=== PATIENT | male | born 1930 | race Caucasian/White ===

== ENCOUNTER 2019-07-27 12:36 | Emergency (ER) | payer OTHER ==
[~2019-07-27] VITALS: Ht 182.9 cm; Wt 90.7 kg
--- NOTE | 2019-07-27 14:05 | RAD ---
Examination: CT head and cervical spine without contrast HISTORY: History of fall COMPARISON: None available CT HEAD Exposure: One or more of the following individualized dose reduction techniques were utilized for this examination: 1. Automated exposure control 2. Adjustment of the mA and/or kV according to patient size 3. Use of iterative reconstruction technique TECHNIQUE: 5 mm contiguous axial images were obtained from the skull base to the vertex in both bone and soft tissue algorithm. FINDINGS: Moderate size hematoma identified in the left forehead. Mild bilateral periventricular white matter hypodensities likely chronic small vessel ischemic disease. No evidence of acute intracranial hemorrhage. No extra-axial fluid collections. No mass effect or midline shift. Ventricular size is appropriate. Basal cisterns are patent. No fractures identified.Archibald-white differentiation is preserved.Globes and orbits are within normal limits. Paranasal sinuses and mastoid air cells are clear. IMPRESSION: 1. No acute intracranial findings. 2. Moderate size hematoma identified in the left forehead region. CT CERVICAL SPINE Technique: 2.5 mm contiguous axial images were obtained from the skull base through the cervicothoracic junction in both bone and soft tissue algorithm. Additional sagittal and coronal reconstructions were also performed. FINDINGS: Vertebral body height and alignment are maintained. Cervical lordosis is preserved. The lateral masses of C1 are aligned upon C2. No fractures identified. The bony canal is patent throughout. Moderate to severe intervertebral disc height loss identified in the cervical spine particularly at C5-C6, C6-C7 vertebral levels with moderate anterior osteophyte formation. The bilateral facets are well aligned. The paraspinous soft tissues are unremarkable. Visualized intracranial contents are unremarkable. Lung apices are clear. IMPRESSION: 1. No acute fracture cervical spine. Correlate clinically. 2. Moderate to severe degenerative changes cervical spine. Electronically signed by: Gordon Reeder MD (07/27/2019 2:02 PM) [facility]
--- NOTE | 2019-07-27 14:43 | PHYS DOC ---
Past Medical History Past Medical History: Diabetes-Type II, Hypertension, Other Additional Past Medical Histor: BPH Past Surgical History: Other Additional Past Surgical Histo: UNKNOWN Alcohol Use: None Drug Use: None Adult General Chief Complaint Chief Complaint: MECHANICAL FALL HPI HPI Patient is a 88 year old male patient with history of hypertension and diabetes mellitus resident of [facility] who presents via EMS with complaining of a fall. Patient states he bending over to carp his remote quadrant and lost his balance and had a fall and injured his left side of his forehead without loss of consciousness or other injuries. Patient complaining of mild pain in his forehead without other pain. Patient is up-to-date with tetanus immunization. Review of Systems Review of Systems Constitutional: Denies fever or chills [] Eyes: Denies change in visual acuity, redness, or eye pain [] HENT: Denies nasal congestion or sore throat [] Respiratory: Denies cough or shortness of breath [] Cardiovascular: No additional information not addressed in HPI [] GI: Denies abdominal pain, nausea, vomiting, bloody stools or diarrhea [] : Denies dysuria or hematuria [] Musculoskeletal: Denies back pain or joint pain [] Integument: Denies rash or skin lesions [] Neurologic: Denies focal weakness or sensory changes, reports headache [] Endocrine: Denies polyuria or polydipsia [] All other systems were reviewed and found to be within normal limits, except as documented in this note. Current Medications Current Medications Current Medications Medications (Trade) Dose Ordered Sig/Jyoti Start Time Stop Time Status Last Admin Dose Admin Diphtheria/ Tetanus/Acell Pertussis (Boostrix) 0.5 ml ONCE ONCE 07/27/19 14:45 07/27/19 14:46 DC Allergies Allergies Allergies Coded Allergies Type Severity Reaction Last Updated Verified No Known Drug Allergies 07/27/19 No Physical Exam Physical Exam Constitutional: Well developed, well nourished, mild distress, non-toxic appearance. [] HENT: Normocephalic, left forehead large ecchymosis and constipation central abrasion Eyes: PERRLA, EOMI, conjunctiva normal, no discharge. [] Neck: C-collar in place Cardiovascular:Heart rate regular rhythm, no murmur [] Lungs & Thorax: Bilateral breath sounds clear to auscultation [] Abdomen: Bowel sounds normal, soft, no tenderness, no masses, no pulsatile masses. [] Skin: Warm, dry, no erythema, no rash. [] Back: No tenderness, no CVA tenderness. [] Extremities: No tenderness, no cyanosis, no clubbing, ROM intact, no edema. [] Neurologic: Alert and oriented X 3, no focal deficits noted. [] Psychologic: Affect normal, judgement normal, mood normal. [] Current Patient Data Vital Signs Vital Signs Date Time Temp Pulse Resp B/P (MAP) Pulse Ox O2 Delivery O2 Flow Rate FiO2 07/27/19 12:40 98.1 68 16 154/74 (100) 98 Room Air 98.1 EKG EKG [] Radiology/Procedures Radiology/Procedures [][facility] [address] [place] [address] IMAGING REPORT Signed PATIENT: EILEEN SIMS ACCOUNT: [id number] : 1930 LOCATION: ER AGE: 88 SEX: M EXAM STATUS: REG ER ORD. PHYSICIAN: WILLIAM MUSE MD REASON: fall PROCEDURE: CT HEAD AND CERVICAL SPINE WO Examination: CT head and cervical spine without contrast HISTORY: History of fall COMPARISON: None available CT HEAD Exposure: One or more of the following individualized dose reduction techniques were utilized for this examination: 1. Automated exposure control 2. Adjustment of the mA and/or kV according to patient size 3. Use of iterative reconstruction technique TECHNIQUE: 5 mm contiguous axial images were obtained from the skull base to the vertex in both bone and soft tissue algorithm. FINDINGS: Moderate size hematoma identified in the left forehead. Mild bilateral periventricular white matter hypodensities likely chronic small vessel ischemic disease. No evidence of acute intracranial hemorrhage. No extra-axial fluid collections. No mass effect or midline shift. Ventricular size is appropriate. Basal cisterns are patent. No fractures identified.Archibald-white differentiation is preserved.Globes and orbits are within normal limits. Paranasal sinuses and mastoid air cells are clear. IMPRESSION: 1. No acute intracranial findings. 2. Moderate size hematoma identified in the left forehead region. CT CERVICAL SPINE Technique: 2.5 mm contiguous axial images were obtained from the skull base through the cervicothoracic junction in both bone and soft tissue algorithm. Additional sagittal and coronal reconstructions were also performed. FINDINGS: Vertebral body height and alignment are maintained. Cervical lordosis is preserved. The lateral masses of C1 are aligned upon C2. No fractures identified. The bony canal is patent throughout. Moderate to severe intervertebral disc height loss identified in the cervical spine particularly at C5-C6, C6-C7 vertebral levels with moderate anterior osteophyte formation. The bilateral facets are well aligned. The paraspinous soft tissues are unremarkable. Visualized intracranial contents are unremarkable. Lung apices are clear. IMPRESSION: 1. No acute fracture cervical spine. Correlate clinically. 2. Moderate to severe degenerative changes cervical spine. Electronically signed by: Gordon Reeder MD (07/27/2019 2:02 PM) [facility] DICTATED and SIGNED BY: GORDON REEDER MD DATE: 07/27/19 140 Course & Med Decision Making Course & Med Decision Making Pertinent Imaging studies reviewed. (See chart for details) Evaluation of patient in ER showed 88-year-old male patient with mechanical fall from a standing position and forehead contusion and hematoma. CT head and cervical spine was unremarkable. Patient did not have focal neurodeficit and ambulated without problem. I've spoken with the patient and/or caregivers. I've explained the patient's condition, diagnosis and treatment plan based on information available to me at this time. I've answered the patient's and/or caregivers questions and addressed any concerns. The patient and/or caregivers have a good understanding the patient's diagnosis, condition and treatment plan as can be expected at this point. Vital signs have been stabilized. The patient's condition is stable for discharge from the emergency department. The patient will pursue further outpatient evaluation with her primary care provider or other designated consulting physician as outlined in the discharge instructions. Patient and/or caregivers are agreeable to this plan of care and follow-up instructions have been explained in detail. The patient and/or caregivers have received these instructions in written format and expressed understanding of these discharge instructions. The patient and her caregivers are aware that if any significant change in condition or worsening of symptoms should prompt him to immediately return to this of the closest emergency department. If an emergent department is not readily available I would encourage him to call 911. Diego Disclaimer Dragon Disclaimer This electronic medical record was generated, in whole or in part, using a voice recognition dictation system. Departure Departure Impression: Primary Impression: Forehead contusion Additional Impression: Fall at [facility] Disposition: 01 HOME, SELF-CARE ([facility] at 1442) Condition: IMPROVED Referrals: UNKNOWN PCP NAME (PCP) Patient Instructions: Facial or Scalp Contusion, Fall Prevention and Home Safety Additional Instructions: Continue current medication Follow-up with your primary care physician in 3-5 days Return to ER if not getting better Apply ice on the affected area Problem Qualifiers Primary Impression: Forehead contusion Encounter type: sequela Qualified Codes: S00.83XS - Contusion of other part of head, sequela Additional Impression: Fall at [facility] Encounter type: initial encounter Qualified Codes: W19.XXXA - Unspecified fall, initial encounter; Y92.129 - Unspecified place in [facility] as the place of occurrence of the external cause WILLIAM MUSE MD Jul 27, 2019 14:43
[2019-07-27 14:45] VITALS: BP 131/82
[2019-07-27] MEDS ORDERED: DIPHTH,PERTUSS(ACELL),TET TOX 0.5 ML DISP.SYRIN. VAX IM ONE (14:45)
== END 2019-07-27 15:09 | disposition home or self-care (01) ==
LOC: ER 12:36
DX: S00.83XA Contusion of other part of head, initial encounter (principal); I10 Essential (primary) hypertension; E11.9 Type 2 diabetes mellitus without complications; W18.39XA Other fall on same level, initial encounter; Y93.89 Activity, other specified; Y92.128 Other place in nursing home as the place of occurrence of the external cause; Y99.8 Other external cause status
CPT/HCPCS: 70450; 72125; 99284-25

== ENCOUNTER 2021-10-05 18:12 | Emergency (ER) | payer OTHER ==
[~2021-10-05] VITALS: Ht 188 cm; Wt 90.0 kg
[2021-10-05] MEDS ORDERED: IV NORMAL SALINE 1000ML BAG 1,000 ML IV SCH (18:45)
[2021-10-05 18:51] LABS: BASO % 0 % (0-3); EOS # 0.1 x10^3/uL (0.0-0.7); EOS % 1 % (0-3); HEMATOCRIT 50.8 % (39.0-53.0); HEMOGLOBIN 16.8 g/dL (13.0-17.5); LYMPH # 0.2 x10^3/uL (1.0-4.8); LYMPH % 2 % (24-48); MEAN CORPUSCULAR HEMOGLOBIN 31 pg (25-35); MEAN CORPUSCULAR HGB CONC 33 g/dL (31-37); MEAN CORPUSCULAR VOLUME 95 fL (79-100); MONO # 0.3 x10^3/uL (0.0-1.1); MONO % 3 % (0-9); NEUT # 11.4 x10^3/uL (1.8-7.7); NEUT % 94 % (31-73); PLATELET COUNT 172 x10^3/uL (140-400); RED BLOOD COUNT 5.38 x10^6/uL (4.30-5.70); WHITE BLOOD COUNT 12.1 x10^3/uL (4.0-11.0)
[2021-10-05 19:03] LABS: CALCIUM 8.8 mg/dL (8.5-10.1); CREATININE 1.6 mg/dL (0.7-1.3); POTASSIUM 4.5 mmol/L (3.5-5.1)
--- NOTE | 2021-10-05 19:03 | PHYS DOC ---
Past Medical History Past Medical History: Diabetes-Type II, Hypertension, Other Additional Past Medical Histor: BPH Past Surgical History: Cancer Surgery, Other Additional Past Surgical Histo: UNKNOWN Smoking Status: Never Smoker Alcohol Use: None Drug Use: None General Adult EDM: Chief Complaint: WEAKNESS/GENERALIZED HPI: HPI: 89-year-old male past medical history of dementia, hypertension and diabetes, presents to the ED BIBEMS from healthcare assisted[facility] facility with concern for weakness, confusion, nausea and vomiting. Patient here with his DPOA, Juno, who states patient requires assistance with ambulation but was unable to use his walker today. Patient with history of swallowing issues in [facility] Review of Systems: Review of Systems: ROS limited due to dementia and hearing loss Heart Score: C/O Chest Pain: N/A Risk Factors: Risk Factors: DM, Current or recent (<one month) smoker, HTN, HLP, family history of CAD, obesity. Risk Scores: Score 0 - 3: 2.5% MACE over next 6 weeks - Discharge Home Score 4 - 6: 20.3% MACE over next 6 weeks - Admit for Clinical Observation Score 7 - 10: 72.7% MACE over next 6 weeks - Early Invasive Strategies Current Medications: Current Medications Medications (Trade) Dose Ordered Sig/Jyoti Start Time Stop Time Status Last Admin Dose Admin Sodium Chloride 1,000 ml @ 1,000 mls/hr Q1H 10/05/21 18:45 10/05/21 19:44 Allergies: Allergies: Allergies Coded Allergies Type Severity Reaction Last Updated Verified No Known Drug Allergies 07/27/19 No Physical Exam: PE: Constitutional: Dried emesis over chin, non-toxic appearance. HENT: Normocephalic, atraumatic, dry mucous membrane, left ear with purulent otorrhea that is draining from middle ear, no TM erythema Eyes: EOMI, conjunctiva normal, no discharge. Neck: Normal range of motion, supple, no JVD Cardiovascular: S1/2 present, tachycardic Lungs & Thorax: Speaking in full sentences, bilateral equal chest rise, no tachypnea or increased work of breathing Abdomen: soft, no tenderness, no grimace with palpation, no rigidity or guarding Skin: Warm, dry, no erythema, no rash. [] Extremities: no cyanosis, no lower extremity edema Neurologic: Alert, answers inappropriately, no focal deficits noted. [] Psychologic: No agitation, flat affect Current Patient Data: Vital Signs: Vital Signs Date Time Temp Pulse Resp B/P (MAP) Pulse Ox O2 Delivery O2 Flow Rate FiO2 10/05/21 18:18 97.7 109 18 176/93 (120) 94 Room Air 97.7 EKG: EKG: Sinus tachycardia 1 to 5 bpm, extreme right axis deviation, QRS 136, QTc 45, right bundle branch block, T wave inversion lead III, no ST elevation or ST depressions Radiology/Procedures: Radiology/Procedures: IMAGING REPORT Signed PATIENT: EILEEN SIMS ACCOUNT: [id number] : 1930 LOCATION: ER AGE: 89 SEX: M EXAM STATUS: REG ER ORD. PHYSICIAN: KOBY CONTRERAS DO REASON: weakness PROCEDURE: CT HEAD WO CONTRAST PQRS Compliance Statement: One or more of the following individualized dose reduction techniques were utilized for this examination: 1. Automated exposure control 2. Adjustment of the mA and/or kV according to patient size 3. Use of iterative reconstruction technique CT HEAD WITHOUT CONTRAST History: Reason: weakness / Spl. Instructions: / History: Comparison: CT head without contrast July 27, 2019. Technique: Axial images are obtained of the head from the skull base through the vertex without IV contrast. Findings: No mass-effect, midline shift, extra-axial fluid collection, hemorrhage, or obvious acute infarction is identified. Basilar cisterns are patent. The ventricles and sulci are prominent, consistent with generalized cerebral atrophy. There is periventricular white matter hypoattenuation. This is a nonspecific finding but is commonly due to chronic small vessel ischemic disease. 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 Bone windows demonstrate no acute calvarial abnormality. The visualized paranasal sinuses are clear. Left mastoid air cells are completely opacified. The left middle ear cavity also may be opacified. IMPRESSION: 1. No acute intracranial abnormality. 2. Generalized cerebral atrophy and mild periventricular white matter changes probably due to chronic small vessel ischemic disease. 3. Left mastoid air cells are completely opacified. Correlate for mastoiditis. Electronically signed by: Stephen Hood MD (10/05/2021 7:54 PM) [facility] DICTATED and SIGNED BY: STEPHEN HOOD MD DATE: 10/05/[id number] 0 IMAGING REPORT Signed PATIENT: EILEEN SIMS ACCOUNT: [id number] : 1930 LOCATION: ER AGE: 89 SEX: M EXAM STATUS: REG ER ORD. PHYSICIAN: KOBY CONTRERAS DO REASON: weakness PROCEDURE: PORTABLE CHEST 1V Single view chest dated 10/05/2021 7:26 PM: COMPARISON: None Clinical Indication: Weakness. Findings: Single upright portable exam of the chest was performed. Heart size upper limits of normal. There is tortuosity and ectasia of the thoracic aorta. Possible aneurysm at the aortic knob measuring up to 6 cm. There are some prominent perihilar linear markings. No consolidation or pleural effusion. No pneumothorax. IMPRESSION: 1. Mild bibasilar interstitial changes, nonspecific. 2. Suspected aneurysm of the thoracic aorta. CT would better evaluate. Electronically signed by: Santosh Law MD (10/05/2021 7:28 PM) [facility] and SIGNED BY: SANTOSH LAW MD DATE: 10/05/[id number] 0 IMAGING REPORT Signed PATIENT: EILEEN SIMS ACCOUNT: [id number] : 1930 LOCATION: ER AGE: 89 SEX: M EXAM STATUS: REG ER ORD. PHYSICIAN: KOBY CONTRERAS DO REASON: N/V, weakness PROCEDURE: CT ABDOMEN PELVIS WO CONTRAST PQRS Compliance Statement: One or more of the following individualized dose reduction techniques were utilized for this examination: 1. Automated exposure control 2. Adjustment of the mA and/or kV according to patient size 3. Use of iterative reconstruction technique CT ABDOMEN+PELVIS WO Clinical Indication: Reason: N/V, weakness / low GFR / Comparison: None. Technique: Helical CT imaging of the abdomen and pelvis is performed without IV or oral contrast. Findings: Evaluation of solid organs and bowel is limited without oral and IV contrast, decreasing sensitivity for detection of pathology. There is respiratory motion artifact in the lung bases. There is bilateral lower lobe atelectasis and/or scarring. Cardiac size upper limits of normal. Coronary artery disease. No pericardial effusion. Liver, gallbladder, spleen, pancreas, and adrenal glands are normal. Atherosclerotic abdominal aorta, no aneurysm. There is no hydronephrosis. Stomach is mildly distended with fluid. There is no dilated small bowel. There is small bowel loop contained in a left inguinal hernia. No colon wall thickening is seen. There is evidence of prior right inguinal hernia repair. The appendix is normal. There is no abdominal adenopathy or free fluid. The urinary bladder is mildly distended, otherwise normal. The prostate is moderately enlarged. No pelvic free fluid. There is degenerative spondylosis of L5/S1. There is mild grade 1 anterolist hesis of L4 on L5. IMPRESSION: 1. No acute abdominal or pelvic abnormality. 2. There is a left inguinal hernia containing a small bowel loop. There is currently no small bowel obstruction. 3. Moderate prostatomegaly. Electronically signed by: Stephen Hood MD (10/05/2021 8:04 PM) [facility] DICTATED and SIGNED BY: STEPHEN HOOD MD DATE: 10/05/21 [id number] 0 Course & Med Decision Making: Course & Med Decision Making Pertinent Labs and Imaging studies reviewed. (See chart for details) Concern for left mastoiditis in the setting of lactic acidosis that did not improve after 3 L NS bolus. Leukocytosis of 12.1 with 1 band. No infection on chest x-ray and urinalysis. Nausea vomiting resolved emergency department patient's mental status significantly improved-requires verbal de-escalation, trying to get out of bed and leave the ED. I spoke to Juno, pts' DPOA and pt is a DNR. Patient was started on broad-spectrum antibiotics. No ENT coverage at [place]. Will transfer to [facility] for ENT consultation and further medical management. The patient has been stabilized within the capability of the emergency department. The patient will be transported for further care and management or will be moved to an observation or inpatient service. I have communicated with the staff or medical practitioner taking over this patient's care. Diego Disclaimer: Diego Disclaimer: This electronic medical record was generated, in whole or in part, using a voice recognition dictation system. Departure Departure Impression: Primary Impression: Acute mastoiditis of left side Additional Impressions: Lactic acidosis Nausea & vomiting Disposition: SHORT [facility] (to [facility], accepted by Dr. Bird ) Condition: GUARDED Referrals: UNKNOWN PCP NAME (PCP) KOBY CONTRERAS DO Oct 05, 2021 19:03
[2021-10-05 19:09] LABS: ALBUMIN 3.6 g/dL (3.4-5.0); ALBUMIN/GLOBULIN RATIO 0.9 (1.0-1.7); MAGNESIUM 1.6 mg/dL (1.8-2.4); TOTAL BILIRUBIN 0.6 mg/dL (0.2-1.0); TOTAL PROTEIN 7.4 g/dL (6.4-8.2)
[2021-10-05] MEDS ORDERED: ONDANSETRON PF 4 MG/2 ML VIAL. IVP ONE (19:15)
[2021-10-05] MEDS ORDERED: FAMOTIDINE 20 MG/2 ML VIAL IVP ONE (19:15)
[2021-10-05 19:23] LABS: % BANDS 1 % (0-9); % EOS 2 % (0-5); % LYMPHS 3 % (24-48); % MONOS 3 % (0-10); % SEGS 91 % (35-66)
[2021-10-05 19:24] LABS: PLT ESTIMATE ADEQUATE (ADEQUATE)
--- NOTE | 2021-10-05 19:31 | RAD ---
Single view chest dated 10/05/2021 7:26 PM: COMPARISON: None Clinical Indication: Weakness. Findings: Single upright portable exam of the chest was performed. Heart size upper limits of normal. There is tortuosity and ectasia of the thoracic aorta. Possible aneurysm at the aortic knob measuring up to 6 cm. There are some prominent perihilar linear markings. No consolidation or pleural effusion. No pneu mothorax. IMPRESSION: 1. Mild bibasilar interstitial changes, nonspecific. 2. Suspected aneurysm of the thoracic aorta. CT would better evaluate. Electronically signed by: Santosh Law MD (10/05/2021 7:28 PM) [facility]
[2021-10-05] MEDS ORDERED: IV NORMAL SALINE 1000ML BAG 1,000 ML IV ONE ×2 (19:45)
--- NOTE | 2021-10-05 19:57 | RAD ---
PQRS Compliance Statement: One or more of the following individualized dose reduction techniques were utilized for this examinat ion: 1. Automated exposure control 2. Adjustment of the mA and/or kV according to patient size 3. Use of iterative reconstruction technique CT HEAD WITHOUT CONTRAST History: Reason: weakness / Spl. Instructions: / History: Comparison: CT head without contrast July 27, 2019. Technique: Axial images are obtained of the head from the skull base through the vertex without IV co ntrast. Findings: No mass-effect, midline shift, extra-axial fluid collection, hemorrhage, or obvious acute infarction is identified. Basilar cisterns are patent. The ventricles and sulci are prominent, consistent with generalized cerebral atrophy. There is perive ntricular white matter hypoattenuation. This is a nonspecific finding but is commonly due to chronic small vessel ischemic disease. 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 Bone windows demonstrate no acute calvarial abnormality. The visualized paranasal sinuses are clear. Left mastoid air cells are completely opacified. The left middle ear cavity also may be opacified. IMPRESSION: 1. No acute intracranial abnormality. 2. Generalized cerebral atrophy and mild periventricular white matter changes probably due to chroni c small vessel ischemic disease. 3. Left mastoid air cells are completely opacified. Correlate for mastoiditis. Electronically signed by: Stephen Hood MD (10/05/2021 7:54 PM) [facility]
--- NOTE | 2021-10-05 20:06 | RAD ---
PQRS Compliance Statement: One or more of the following individualized dose reduction techniques were utilized for this examinat ion: 1. Automated exposure control 2. Adjustment of the mA and/or kV according to patient size 3. Use of iterative reconstruction technique CT ABDOMEN+PELVIS WO Clinical Indication: Reason: N/V, weakness / low GFR / Comparison: None. Technique: Helical CT imaging of the abdomen and pelvis is performed without IV or oral contrast. Findings: Evaluation of solid organs and bowel is limited without oral and IV contrast, decreasing sensitivity for detection of pathology. There is respiratory motion artifact in the lung bases. There is bilateral lower lobe atelectasis and /or scarring. Cardiac size upper limits of normal. Coronary artery disease. No pericardial effusion. Liver, gallbladder, spleen, pancreas, and adrenal glands are normal. Atherosclerotic abdominal aorta, no aneurysm. There is no hydronephrosis. Stomach is mildly distended with fluid. There is no dilated small bowel. There is small bowel loop co ntained in a left inguinal hernia. No colon wall thickening is seen. There is evidence of prior right inguinal hernia repair. The appendix is normal. There is no abdominal adenopathy or free fluid. The urinary bladder is mildly distended, otherwise normal. The prostate is moderately enlarged. No pe lvic free fluid. There is degenerative spondylosis of L5/S1. There is mild grade 1 anterolisthesis of L4 on L5. IMPRESSION: 1. No acute abdominal or pelvic abnormality. 2. There is a left inguinal hernia containing a small bowel loop. There is currently no small bowel obstruction. 3. Moderate prostatomegaly. Electronically signed by: Stephen Hood MD (10/05/2021 8:04 PM) [facility]
[2021-10-05] MEDS ORDERED: VANCOMYCIN PER PHARMACY MC PRN (22:30)
[2021-10-05 22:46] LABS: BILIRUBIN,URINE NEGATIVE (NEG); CLARITY,URINE CLEAR; COLOR,URINE YELLOW
[2021-10-05 22:47] LABS: NITRITE,URINE NEGATIVE (NEG); PROTEIN,URINE 30 mg/dL (NEG-TRACE)
[2021-10-05 22:48] LABS: BACTERIA,URINE FEW /HPF (0-FEW)
[2021-10-05] MEDS ORDERED: VANCOMYCIN 2 GM in IV NORMAL SALINE 500ML BAG 500 ML IV ONE (23:00)
[2021-10-05] MEDS ORDERED: PIPERACILLIN/TAZOBACTAM 4.5 GM in IV NORMAL SALINE 100ML 100 ML IV ONE (23:00)
[2021-10-05] MEDS ORDERED: PIPERACILLIN/TAZOBACTAM 4.5 GM in IV DEXTROSE 5% 100ML 100 ML IV ONE (23:07)
[2021-10-06 03:35] VITALS: BP 183/95
--- NOTE | 2021-10-06 06:05 | EKG ---
[facility] [address] [place] [address] Test Date: 2021-10-05 Test Time: 18:27:23 Pat Name: EILEEN SIMS Department: Room: Gender: M [employer]her: : 1930 Requested By: KOBY CONTRERAS Order Number: [id number] Reading MD: Rafiq Blanco MD Measurements Intervals Watson Rate: 105 P: 219 ME: 190 QRS: 229 QRSD: 136 T: 14 QT: 364 QTc: 485 Interpretive Statements SINUS TACHYCARDIA RBBB NON-SPECIFIC ST/T CHANGES Electronically Signed On 10-11-2021 11:29:53 COMPUTER SERVICE TECHNICIAN by Rafiq Blanco MD
== END 2021-10-06 03:35 | disposition short-term general hospital (02) ==
LOC: ER 18:12
DX: H70.002 Acute mastoiditis without complications, left ear (principal); E87.2 Acidosis; R11.2 Nausea with vomiting, unspecified; Z20.822 Contact with and (suspected) exposure to COVID-19; K40.90 Unilateral inguinal hernia, without obstruction or gangrene, not specified as recurrent; E11.9 Type 2 diabetes mellitus without complications; I10 Essential (primary) hypertension; F03.90 Unspecified dementia, unspecified severity, without behavioral disturbance, psychotic disturbance, mood disturbance, and anxiety
CPT/HCPCS: 36415; 70450; 71045; 74176; 80053; 81001; 83605; 83690; 83735; 83880; 84484; 85007; 85025; 87040; 87077; 87426; 93005; 96361; 96365; 96366; 96368; 96375; 99285; J2405; J2543; J3370; J3490; J7030; J7040; J7060